=== PATIENT | female | born 1940 | race Caucasian/White ===

== ENCOUNTER 2023-10-13 21:59 | Inpatient (IN) | payer OTHER, SELFPAY ==
[2023-10-13] VITALS (7 sets, daily range): BP systolic 131–154; BP diastolic 67–104
--- NOTE | 2023-10-13 17:42 | ED.GENMED ---
History of Present Illness
General
Chief Complaint: Breathing Problem
Source: patient and family (Daughter)
Exam Limitations: none
Time Seen by Provider: 10/13/23 17:31
Nursing documentation reviewed up to this point in time: agreed with
Travel History
Have you had any contact with someone who has COVID-19?: No
Do you have any symptoms of coronavirus? Fever > 100 degrees, chills, cough, shortness of breath, sore throat, loss of taste or smell, muscle aches, or headache?: Yes
Symptoms:: sob
History of Present Illness
History of Present Illness:
83-year-old female with a past medical history of hypertension, diabetes, dementia, CVA with left-sided weakness who presents to the emergency room with her daughter for evaluation of breathing difficulty and lethargy. Patient is very limited as a
historian cannot really tell me very much due to her baseline dementia as well as her communicative deficits from stroke. Daughter is at bedside provides collateral history: She says that mother was in her normal state of health until Wednesday when
she noticed increased lethargy and patient was having some coughing and breathing difficulties. Symptoms are worsening today EMS called to bring patient to the emergency room to be assessed. No fevers or chills noted. No vomiting. No other
issues noted.
Past History
Past History
ED Past Medical History: CVA, GERD, HTN, NIDDM and Other (Memory loss)
ED Past Surgical History: Gynecological
Social History
Tobacco: Non-smoker
Personal:
Living: with family
Employment: Retired
Review of Systems
Review of Systems
Unable to obtain full review of systems at this time due to: dementia
All Other Systems: Not applicable
Phy Exam
Physical Exam
Physical Exam:
General: Awake, alert, chronically ill-appearing
Head: Normocephalic, atraumatic
Eyes: Conjunctiva normal, sclera anicteric
Throat: Airway intact, handling secretions
Neck: Trachea midline, supple without meningismus
Lungs: Rhonchorous breath sounds scattered bilaterally; pulse ox 88 to 90% on room air requiring 2 L nasal cannula; occasional coughing
Heart: Tachycardia with regular rhythm, no murmurs, gallops, or rubs
Abd: Soft, non distended, no apparent tenderness
Neuro: Left-sided weakness upper and lower extremities and slight left facial droop which is baseline per daughter
Extremities: Warm well-perfused with no significant edema
Scores
Heart Failure Risk
Heart Failure Risk Score: Not Applicable
Heart Score for Chest Pain Patients
STEMI patient?: Not applicable
Withdrawal Assessment of Alcohol
Withdrawal Assessment Completed?: Not applicable
Course
Orders/Labs/Results
Orders:
Orders
10/13/23 17:32
Electrocardiogram (*1) Urgent
Reason for Study: Shortness of Breath
EKG- Treatment ONCE
CR Chest Portable - 1 View Urgent
Comment:
Reason For Exam: sob
Reason Study Needs to be Portable: Unable to Transport
10/13/23 17:34
COVID-19 Antigen Urgent
Source: Nasal Swab
Complete Blood Count/With Diff Urgent
Comprehensive Metabolic Panel Urgent
Influenza A+B Rapid Molecular Urgent
GUCCI Source: Nasal Swab
Specimen Description:
10/13/23 18:04
Blood Culture Routine
GUCCI Source: Blood/Venous
Specimen Description:
Date Specimen was Collected: 10/13/23
Time Specimen was Collected: 17:55
10/13/23 18:47
CT Chest Pe Study Urgent
Comment:
Reason For Exam: hypoxia, dyspnea
10/13/23 19:40
Lactate Level [Lactic Acid] Urgent
10/13/23 19:45
Blood Culture Q30M
GUCCI Source: Blood/Venous
Specimen Description:
10/13/23 19:54
Azithromycin 500 mg IVPB NOW Azithromycin 500 mg/250 ml [Zithromax Infusion] 500 mg in 250 ml IV NOW
CefTRIAXone [Rocephin] 1,000 mg IV NOW STA
10/13/23 19:55
Procalcitonin Urgent
PCT Algorithmm Indication: Respiratory
Urinalysis Reflex To Culture Urgent
10/13/23 19:56
NSS 500mL Bolus over 1 hr 0.9% Sodium Chloride 500 ml [Nss] 500 ml IV BOLUS
10/13/23 20:15
Blood Culture Q30M
GUCCI Source: Blood/Venous
Specimen Description:
Abnormal Lab Results
10/13/23
17:34
WBC 17.7 H 10^3/uL
(4.8-10.8)
MCHC 32.5 L g/dL
(33.0-37.0)
Plt Count 440 H 10^3/uL
(130-400)
MPV 10.7 H fL
(7.4-10.4)
Abs Immat Gran (auto) 0.1 H 10^3/uL
(0-0.05)
Absolute Neuts (auto) 14.3 H 10^3/uL
(1.4-6.5)
Absolute Monos (auto) 0.7 H 10^3/uL
(0.1-0.6)
Neutrophils % 81.0 H %
(42.2-75.2)
Lymphocytes % 13.5 L %
(20.5-51.1)
BUN 21 H mg/dl
(7-17)
Glucose 197 H mg/dl
(70-99)
Calcium 12.0 H mg/dl
(8.4-10.2)
AST 38 H U/L
(14-36)
Alkaline Phosphatase 152 H U/L
(38-126)
10/13/23 17:34
10/13/23 17:34
Vital Signs
Initial and Last Documented VS:
Initial Vital Signs
Temp Pulse Resp BP Pulse Ox
36.9 C 103 21 138/69 90
10/13/23 17:06 10/13/23 17:06 10/13/23 17:06 10/13/23 17:06 10/13/23 17:06
Last Documented Vital Signs
Temp Pulse Resp BP Pulse Ox
36.9 C 103 21 138/69 92
10/13/23 17:06 10/13/23 17:06 10/13/23 17:06 10/13/23 17:06 10/13/23 17:15
MDM/Problems Addressed
Differential Diagnosis Includes:
Pneumonia, bronchitis, viral syndrome/influenza, PE considered somewhat less likely
MDM/Problems Addressed:
83-year-old female presents from home with cough, breathing difficulties and lethargy over the past few days. Tachycardic and mildly tachypneic, hypoxic on arrival. Physical exam as above. Plan to place an IV check labs including CBC and CMP will
send viral swabs. Will check an EKG and a chest x-ray. Will monitor closely reassess after the above. Anticipate admission.
Labs reviewed: CBC shows a leukocytosis to 17.7. CMP shows random glucose of 197 no signs of DKA. Viral swabs have been negative. Chest x-ray limited due to low lung volumes no clear pneumonia or edema. Given hypoxia and continued tachycardia,
tachypnea will send for CTA to rule out PE as well as to evaluate for any occult pneumonia. Added on lactate and blood cultures as well given her leukocytosis.
CTA shows no clear PE; she does have atelectasis versus scarring at the lung bases right greater than left; based on her history I would be concerned for potential occult pneumonia here as well. She does have increased oxygen requirement with no
other clear explanation and she has a significant leukocytosis, continued tachycardia and tachypnea. Will cover her with antibiotics. Will plan for admission for continued monitoring and treatment. Discussed with hospitalist for admission.
Chronic conditions affecting care:
Dementia
*Radiology
Radiology exam reviewed: preliminary read by ED provider and radiology read reviewed
*Pulse Oximetry
Patient hypoxic: yes
*Critical Care Note
Total Time (30-74mins, 75-104mins- exclusive of procedures): Not Applicable
Data Reviewed
Review of Other/Old Records Reveals: Labs and Records
Source: patient, records, family (Daughter) and ambulance crew
Patient Management
Discussion with other providers: Hospitalist (Discussed with hospitalist)
Escalation/DeEscalation of care consider admission/obs:
Admission indicated
ED Attending Note
-
Portions of this chart may have been created with voice recognition software.� Occasional wrong word or��sound alike� substitutions may have occurred due to the inherent limitations of voice recognition software.
Discharge Plan
Departure
Patient Disposition: Admit
Date of Disposition: 10/13/23
Time of Disposition: 19:59
Admit to doctor: Narda
Presentation/result/management discussed w/ accepting MD/DO: Hospitalist
Discharge Problem:
Pneumonia, Acute hypoxic respiratory failure
Prescriptions:
No Action
metformin 500 MG tablet
500 mg PO BID
amlodipine 10 MG tablet
10 mg PO HS
acetaminophen 325 MG tablet
650 mg PO QID PRN (Reason: pain) 0RF
Rx Instructions:
diltiazem HCl 120 MG capsule,extended release 24hr
120 mg PO DAILY 0RF
fluticasone propionate 1 SPRAY spray,suspension
1 spray intranasal DAILY Qty: 1 0RF
atorvastatin 40 MG tablet
40 mg PO QPM Qty: 30 0RF
clopidogrel 75 MG tablet
75 mg PO DAILY Qty: 30 0RF
benzocaine-menthol [Cepacol Sore Throat (fior-men)] 1 JOAN lozenge
1 joan PO Q4HPRN PRN (Reason: sore throat) 0RF
Referrals:
UNKNOWN - PT DOES,NOT KNOW [Unknown Provider] -
Interventions
Interventions:
*Risk Screen - Suicide Last Done: 10/13/23 17:06
*General Assessment Last Done: 10/13/23 17:06
*Neglect/Abuse Screening Last Done: 10/13/23 17:06
*ED COVID-19 Vaccine History Last Done: 10/13/23 17:06
ED- Cardiac Assessment Last Done: 10/13/23 17:38
ED- Pulmonary Assessment Last Done: 10/13/23 17:15
[2023-10-13 17:47] LABS: % Basophils 0.3 % (0-2); % Eosinophils 0.7 % (0-6); % Immature Granulocytes 0.4 % (0-0.5); % Lymphocytes 13.5 % (20.5-51.1); % Monocytes 4.1 % (1.7-9.3); Absolute Basophils 0.1 10^3/uL (0-0.2); Absolute Eosinophils 0.1 10^3/uL (0-0.7); Absolute Immature Granulocytes 0.1 10^3/uL (0-0.05); Absolute Lymphocytes 2.4 10^3/uL (1.2-3.4); Absolute Monocytes 0.7 10^3/uL (0.1-0.6); Absolute Neutrophils 14.3 10^3/uL (1.4-6.5); Hematocrit 42.2 % (37.0-47.0); Hemoglobin 13.7 g/dL (12.0-16.0); Mean Corp Hgb Conc. 32.5 g/dL (33.0-37.0); Mean Corpuscular Volume 86.1 fL (81.0-99.0); Mean Platelet Volume 10.7 fL (7.4-10.4); Nucleated Red Blood Cells % 0 %; Platelet Count 440 10^3/uL (130-400); Red Cell Dist. Width 13.8 % (11.5-14.5); White Blood Cell Count 17.7 10^3/uL (4.8-10.8)
[2023-10-13 17:59] LABS: ALT (SGPT) 21 U/L (0-35); AST (SGOT) 38 U/L (14-36); Albumin 4.3 g/dl (3.5-5.0); Alkaline Phosphatase 152 U/L (38-126); Blood Urea Nitrogen 21 mg/dl (7-17); COVID-19 Antigen Negative (Negative); Carbon Dioxide 22 mmol/L (22-30); Chloride 105 mmol/L (98-107); Glucose 197 mg/dl (70-99); Potassium 4.6 mmol/L (3.5-5.1); Sodium 141 mmol/L (135-145); Total Bilirubin 0.8 mg/dl (0.2-1.3); Total Protein 7.6 g/dl (6.3-8.2); eGFR > 60.00
[2023-10-13] MEDS: ROCEPHIN 1000 MG IV (20:16)
[2023-10-13] MEDS: ZITHROMAX INFUSION 250 IV (20:16)
[2023-10-13] MEDS: NSS 500 IV (20:16)
--- NOTE | 2023-10-13 20:17 | HPS.HSE ---
Family Physician
-
Family Physician: Fabio Temple
Chief Complaint
-
shortness of breath and fatigue
History of Present Illness
Ms. Carrie Hoyt is a 83 yo woman with hx HTN, DM, dementia, CVA with residual left-sided weakness who presents to the ER with fatigue and and cough. History obtained from daughter at bedside. Patient is lethargic on my exam. Per daughter,
patient was in her usual state of health on Wednesday. On Wednesday she appeared to be run down from a cold. On Wednesday she was more fatigued. She did not have a fever and continued to eat well. She had mild cough and daughter heard a 'gurgle' in her
chest. Hotel Assistant Manager mentioned possibility of pneumonia which resulted in daughter bringing her to ER. Daughter has been giving her Robitussin with dextromethorphan. Patient has been increasingly fatigued.
No complaints of chest pain. No nausea/vomiting. No diarrhea. No fevers.
At baseline she is non-ambulatory and fully dependent on care (cannot transfer). Daughter has caregivers during day and cares for her at night.
Medical History
Past Medical History
Past Medical History: Reports Other (HTN, DM, dementia, CVA with residual left-sided weakness)
Past Surgical History: Reports Gynocological
Social History
Tobacco: Non-smoker
Personal:
Family History
Family History: Not pertinent
Allergies / Home Medications
Allergies reflects when Allergies were last updated in [facility].
Home Medications with original date entered in [facility]
Allergy/Medication List:
Allergies
Allergy/AdvReac Type Severity Reaction Status Date / Time
latex Allergy Unknown Verified 05/19/23 19:19
Home Medications
amlodipine 10 mg tablet 10 mg PO DAILY 03/30/18
metformin 500 mg tablet 500 mg PO DAILY 03/30/18
clopidogrel 75 mg tablet 75 mg PO DAILY ##30 09/19/18
acetaminophen 325 mg tablet 650 mg PO TID 10/13/23
atorvastatin 40 mg tablet 40 mg PO DAILY 10/13/23
dextromethorphan-guaifenesin 10 mg-100 mg/5 mL oral liquid 10 ml PO Q4H PRN COUGH 10/13/23
diltiazem HCl 120 mg tablet 120 mg PO DAILY 10/13/23
metformin 500 mg tablet 500 mg PO QPMPRN PRN BLOOD SUGAR 10/13/23
Review of Systems
-
History Source: Patient
A 12 point ROS was completed and negative except as noted: Yes
Physical Exam
Vital Signs
Vital Signs
Temp Pulse Resp BP Pulse Ox
98.4 F 103 21 138/69 92
10/13/23 17:06 10/13/23 17:06 10/13/23 17:06 10/13/23 17:06 10/13/23 17:15
Physical Exam
General: Other (lethargic, grimaces to touch)
HEENT: PERRLA
Respiratory: Rales; No Wheezes
Cardiac: S1/S2 and Regular Rhythm
GI: Soft and Non Tender
Musculoskeletal: No Edema and Other (contractures )
Skin: Warm and Dry; No Rash
Neuro: Sedated
Psych: Calm
Laboratory Results
-
10/13/23 17:34
10/13/23 17:34
Laboratory Results
Total Bilirubin 0.8 mg/dl (0.2-1.3) 10/13/23 17:34
AST 38 U/L (14-36) H 10/13/23 17:34
ALT 21 U/L (0-35) 10/13/23 17:34
Alkaline Phosphatase 152 U/L (38-126) H 10/13/23 17:34
Data Reviewed
-
Diagnostic Radiology: Report Reviewed by me
Lab Data: Labs Reviewed by me
Impression/Plan
-
Ms. Carrie Hoyt is a 83 yo woman with hx HTN, DM, dementia, CVA with residual left-sided weakness who presents to the ER with fatiue and cough x 2-3 days found to have severe sepsis likely 2/2 pneumonia.
Triage VS: T 984, P 103, RR 21, BP 138/69, SpO2 90%
Labs: WBC 17.7, Hg 13.7, PLT 440, Na 141, K+ 4.6, BUN 21, Cr 0.6 ,Glucose 197, Ca 12, T. Bili 0.8, AST 38, ALT 21, Alk Phos 152
covid and flu negative
CXR
IMPRESSION:
Low lung volumes.
Cardiac silhouette and pulmonary vascularity at least top normal, cannot exclude mild CHF or acute pulmonary edema.
CHEST CT
IMPRESSION:
No evidence of central pulmonary embolism.
Likely coronary artery calcification
'some mild bilateral subsegmental atelectasis and/or scarring, right greater than left.'
MAR: Cef, Azithro, 500 cc bolus
Severe Sepsis secondary to pneumonia
TME 2/2 above
Hypoxic Respiratory Insufficiency 2/2 Above
-admit to med/surg
-flu and covid negative
-s/p Cef/Azithro in ER, will continue
-F/U cultures
-trend lactate and bolus PRN
-O2 support as needed
-gentle IVF
-NPO until ST eval given TME
Reactive airway disease
-patient uses albuterol at home; no hx smoking; will give standing duonebs x 24 hours then PRN, no wheezing on exam
Hypertension
-CLAM DIGGER amlodipine, patient runs high at home per daughter
Dementia
-patient requires 24/7 care, non-ambulatory
Hx CVA with residual left-sided weakness
-CLAM DIGGER Plavix when able to take PO
Hypercalcemia - mild/moderate
-hydration overnight and repeat tomorrow
DVT PPx lovenox subQ
DNR - discussed with daughter on admission
76 minutes spent on patient evaluation, medical decision making, coordination of care
[2023-10-13 20:42] LABS: Urine Albumin 2+ (Neg - Trace); Urine Bilirubin Negative (Negative); Urine Character Slightly Cloudy (Clear); Urine Color Yellow; Urine Glucose Negative (Negative); Urine Ketone 1+ (Negative); Urine Leukocyte Trace (Negative); Urine Nitrite Negative (Negative); Urine Occult Blood Negative (Negative); Urine Urobilinogen 1+ (Neg - 1+)
[2023-10-13 20:47] LABS: Urine Amorphous Seen; Urine Squamous Cell 0-2 /LPF (Few)
[2023-10-13 20:48] LABS: Urine Red Blood Cell None Seen /HPF (0-2)
[2023-10-13 20:50] LABS: Lactic Acid 2.1 mmol/L (0.7-2.0)
[2023-10-13 21:06] LABS: Procalcitonin 0.17 ng/ml (0.0-0.25)
[2023-10-14] VITALS (20 sets, daily range): BP systolic 114–160; BP diastolic 58–78; BMI 24.9
[2023-10-14] MEDS: NSS 1000 IV ×2 (00:40→14:39)
[2023-10-14 03:41] LABS: Lactic Acid 0.8 mmol/L (0.7-2.0)
[2023-10-14 05:21] LABS: % Basophils 0.4 % (0-2); % Eosinophils 1.2 % (0-6); % Immature Granulocytes 0.4 % (0-0.5); % Lymphocytes 11.5 % (20.5-51.1); % Monocytes 6.3 % (1.7-9.3); % Neutrophils 80.2 % (42.2-75.2); Absolute Basophils 0.1 10^3/uL (0-0.2); Absolute Eosinophils 0.2 10^3/uL (0-0.7); Absolute Immature Granulocytes 0.1 10^3/uL (0-0.05); Absolute Lymphocytes 1.6 10^3/uL (1.2-3.4); Absolute Monocytes 0.9 10^3/uL (0.1-0.6); Absolute Neutrophils 10.9 10^3/uL (1.4-6.5); Hematocrit 30.3 % (37.0-47.0); Hemoglobin 10.1 g/dL (12.0-16.0); Mean Corp Hgb Conc. 33.3 g/dL (33.0-37.0); Mean Corpuscular Hgb 28.4 pg (27.0-31.0); Mean Corpuscular Volume 85.1 fL (81.0-99.0); Mean Platelet Volume 10.3 fL (7.4-10.4); Nucleated Red Blood Cells % 0 %; Platelet Count 333 10^3/uL (130-400); Red Blood Cell Count 3.56 10^6/uL (4.20-5.40); Red Cell Dist. Width 13.9 % (11.5-14.5); White Blood Cell Count 13.6 10^3/uL (4.8-10.8)
[2023-10-14 05:50] LABS: Blood Urea Nitrogen 17 mg/dl (7-17); Calcium 10.8 mg/dl (8.4-10.2); Carbon Dioxide 25 mmol/L (22-30); Chloride 108 mmol/L (98-107); Estimated Creatinine Clearance 60 ml/min; Glucose 152 mg/dl (70-99); Magnesium 1.9 mg/dl (1.6-2.3); Potassium 3.8 mmol/L (3.5-5.1); Sodium 142 mmol/L (135-145); eGFR > 60.00
--- NOTE | 2023-10-14 07:32 | W.PN.HOSP.TC ---
Today's Communication/Plan
-
see A/P
Assessment / Plan
Assessment / Plan
83 yo woman with hx HTN, DM, dementia, CVA with residual left-sided weakness who presented with fatigue and and cough.� History obtained from daughter at bedside.� Patient is lethargic on exam.� Per daughter, patient was in her usual state of health
on Wednesday.�On Wednesday she appeared to be run down from a cold.�On Wednesday she was more fatigued.�She did not have a fever and continued to eat well.� She had mild cough and daughter heard a 'gurgle' in her chest.� Senior Geologist mentioned possibility of
pneumonia which resulted in daughter bringing her to ER.�Daughter has been giving her Robitussin with dextromethorphan.� Patient has been increasingly fatigued.�
No complaints of chest pain.� No nausea/vomiting.� No diarrhea.� No fevers.�
At baseline she is non-ambulatory and fully dependent on care (cannot transfer).�Daughter has caregivers during day and cares for her at night.�
CXR:
Low lung volumes.
Cardiac silhouette and pulmonary vascularity at least top normal, cannot exclude mild CHF or acute pulmonary edema.
CHEST CT
No evidence of central pulmonary embolism. Likely coronary artery calcification
'some mild bilateral subsegmental atelectasis and/or scarring, right greater than left.'
A/P:
# Sepsis POA secondary to pneumonia
# Acute metabolic encephalopathy 2/2 above
# Acute Hypoxic Respiratory Insufficiency 2/2 Above, resolved
# Resolved mild lactic acidosis
Weaned off O2 support back to RA
flu and covid negative
Procal 0.17
s/p Cef/Azithro in ER, will continue
F/U blood cultures, check MRSA screen
Gentle IVF
NPO until ST eval given TME
# Reactive airway disease
patient uses albuterol at home; no hx smoking
Cont standing duonebs x 24 hours then PRN, no wheezing on exam
# Hypertension
Cont CASING CREW PUSHER amlodipine with holding parameter
# Dementia
patient requires 24/7 care, non-ambulatory
She is awake, not conversant
# Hx CVA with residual left-sided weakness
Cont CASING CREW PUSHER Plavix when able to take PO
# Hypercalcemia - mild/moderate
improved following IVF
DVT PPx Lovenox subQ
DNR - discussed with daughter on admission
updated daughter on the phone
Anticipated Discharge: > 48 hours
Subjective/Interval History
-
Date of Service: October 14, 2023
Objective Data
-
Labs:
Laboratory Results
10/14/23
05:08
WBC 13.6 H
Hgb 10.1 L D
Hct 30.3 L
Plt Count 333 D
Sodium 142
Potassium 3.8
Chloride 108 H
Carbon Dioxide 25
BUN 17
Creatinine 0.5 L
Glucose 152 H
Calcium 10.8 H
Vital Signs:
Vital Signs
Temp Pulse Resp BP Pulse Ox
36.9 C 77 14 143/71 91
10/13/23 17:06 10/14/23 07:00 10/14/23 07:00 10/14/23 07:00 10/14/23 07:00
Review of Systems
-
Unable to obtain full review of systems at this time due to: Dementia and Acuity
Physical Exam
-
General: Well Developed, Well Nourished, No Apparent Distress and Comfortable; Negative Respiratory Distress
HEENT: Normocephalic, Atraumatic, Nose Appears Normal and Ears Appear Normal; Negative Oxygen
Respiratory: Clear to Auscultation and Non Labored Respirations; Negative Accessory Resp Muscle Use
Cardiac: Regular Rhythm and S1/S2
GI: Soft, Nontender, Nondistended and Normal Bowel Sounds
Skin: Warm and Dry
Neuro: Awake
Psych: Calm and Apparent Dementia
Data Reviewed
-
Diagnostic Radiology: Report Reviewed by me
CT Scan: Report Reviewed by me
Labs: Labs Reviewed by me
[2023-10-14] MEDS: DUONEB 3 ML INH ×3 (07:47→15:33)
[2023-10-14 08:54] LABS: Glycohemoglobin (HgbA1c) 6.8 % (4.0-5.6)
--- NOTE | 2023-10-14 10:03 | PTOTSP ---
Speech Therapy
Presentation: Patient is unable to answer orientation questions, slow formulation of short utterances that are intermittently intelligible and functional.
Swallowing Function: GEODETIC SURVEYOR TECHNOLOGIST observed patient with several tsp presentations of ice, thin liquids, nectar thick liquids and puree. Patient appeared to tolerate ice chips, nectar thick liquids and puree as patient did not exhibit any overt clinical s/sx
of aspiration. Patient did demonstrate a reflexive weak cough and throat clear with thin liquids. Patient's SpO2 and RR remained WNL but patient did appear to be short of breath. Nasal O2 noted.
Recommendations:
1) IDDSI Level 4; puree solids and mildly thick liquids
2) Standard aspiration precautions
3) Medications as tolerated
4) May consider VSE
5) Not a candidate for ARHP at this time due to confusion
Plan: GEODETIC SURVEYOR TECHNOLOGIST will continue to follow; pending hospitalization.
[2023-10-14] MEDS: NORVASC 10 MG PO (10:11)
[2023-10-14] MEDS: PLAVIX 75 MG PO (10:12)
[2023-10-14 10:15] LABS: Glucose - Point of Care 151 mg/dl (70-99)
[2023-10-14] MEDS: NOVOLOG FLEXPEN-LOW RESISTANCE SC ×2 (10:17→13:30)
[2023-10-14 13:23] LABS: Glucose - Point of Care 135 mg/dl (70-99)
--- NOTE | 2023-10-14 13:39 | EDRN ---
@1140 noted runs of VTACH on monitor, RN went into room, pt. sleeping. No obvious distress. Pt. awoken and not noted to be in any pain. EKG repeated, vitals repeated and stable. No new runs noted while doing EKG. Dr. Allen contacted on tiger text and
made aware of the situation. Stated she would be down to see the pt. Will continue to monitor pt. Rhythm strips printed and placed in chart.
--- NOTE | 2023-10-14 14:35 | CON.CAR ---
Addendum entered and electronically signed by Ann-Marie De Luna MD 10/14/23 16:32:
I saw and examined the patient.
The GENERATOR WORKER's note was reviewed and I agree with the note.
Comment: 83 y/o female with hypertension, DM, dementia, CVA with left-sided weakness who is here with fatigue and cough and is being treated for PNA. We are consulted for arrhythmia noted on the monitor- she was not symptomatic per nursing.�She
cannot provide any history due to OBS. Care give at bedside denies cardiac history. She had increased sob and coughing when eating. On exam she is awake but doesn't participate in a conversation. Regular rate and rhythm with normal S1-S2, she has
bibasilar rales, extremities are without edema. On review of her telemetry, sinus rhythm is noted with intermittent left bundle branch block. Additionally, there is episodes of artifact that could be reminiscent of a very fast tachyarrhythmia, but
complexes October through. There is no evidence of VT. Will continue treating for pneumonia as you are. She is DNR and has significant dementia. No need to continue telemetry.
We will sign off but return if needed.
Original Note:
Consultation
Consultation Request
Date/Time Consultation Requested: 10/14/23 1200
Date/Time Consultation Performed: 10/14/23 1350
Requesting Provider: Dr. Morales
Performing Provider: Alysha HARDY for Dr. De Luna
Reason for Consultation: arrhythmia
Medical History
-
Chief Complaint: fatigue, cough
History of Present Illness:
83 y/o female with hypertension, DM, dementia, CVA with left-sided weakness who is here with fatigue and cough and is being treated for PNA. We are consulted for arrhythmia noted on the monitor- she was not symptomatic per nursing. She is here being
treated for sepsis/PNA with ABX.
Past Medical History
Past Medical History: CVA, HTN, NIDDM and Other (dementia)
Social History
Tobacco: Non-Smoker
Family History
Family History: Reviewed & Not Pertinent
Allergies / Home Medications
Allergy/AdvReac Type Severity Reaction Status Date / Time
latex Allergy Unknown Verified 05/19/23 19:19
Medication Instructions Recorded Confirmed Type
amlodipine 10 mg tablet 10 mg PO DAILY 03/30/18 10/13/23 History
metformin 500 mg tablet 500 mg PO DAILY 03/30/18 10/13/23 History
clopidogrel 75 mg tablet 75 mg PO DAILY ##30 04/27/18 10/13/23 Rx
acetaminophen 325 mg tablet 650 mg PO TID 10/13/23 10/13/23 History
atorvastatin 40 mg tablet 40 mg PO DAILY 10/13/23 10/13/23 History
dextromethorphan-guaifenesin 10 10 ml PO Q4H PRN COUGH 10/13/23 10/13/23 History
mg-100 mg/5 mL oral liquid
diltiazem HCl 120 mg tablet 120 mg PO HS 10/13/23 10/13/23 History
metformin 500 mg tablet 500 mg PO QPMPRN PRN BLOOD SUGAR 10/13/23 10/13/23 History
Review of Systems
-
Unable to obtain full review of systems at this time due to: Dementia
History Source: Other (blind stitch machine operator and chart)
All other systems: Negative unless noted
Constitutional: Fatigue
Respiratory: Cough
Physical Exam
Vital Signs
Temp Pulse Resp BP Pulse Ox
98.8 F 76 14 114/58 99
10/14/23 07:30 10/14/23 13:00 10/14/23 13:00 10/14/23 13:00 10/14/23 11:47
Lab Results
10/14/23 05:08
10/14/23 05:08
Physical Exam
General: Well Developed, Well Nourished and No Apparent Distress
HEENT: Normocephalic and Anicteric
Respiratory: Other (coarse lung sounds)
Cardiac: Regular Rhythm
Skin: Warm and Dry
Neuro: Awake, Alert and Other (following simple commands, but not answering questions- improved from yesterday per blind stitch machine operator )
Psych: Calm
Impression / Plan
-
Sepsis/PNA:
-WBC elevated. On ABX-. s/p IVF. Speech eval.
-management per primary team
Arrhythmia:
-tele strips reviewed with Dr. De Luna- consistent with artifact- no further cardiac evaluation indicated
HTN:
-stable on medical therapy
Hx CVA:
-on Plavix/statin
Data Reviewed
-
EKG: Tracing Personally Visualized and interpreted (SR with LBBB)
CT Scan: Report Reviewed by me (CT SCAN: No evidence of central pulmonary embolism.)
Medical Tests (Nuc Med, Echo etc): Report Reviewed by me (echo 03/31/18: Normal left ventricular systolic function. Left ventricular ejection fraction is 55-60%. Aortic sclerosis/mild aortic stenosis with peak/mean gradients of 16/9 mmHg.)
Labs: Labs Reviewed by me
[2023-10-14] MEDS: ROCEPHIN 1000 MG IV (16:56)
[2023-10-14] MEDS: STERILE WATER FOR INJECTION 10 ML IV (16:57)
[2023-10-14 17:21] LABS: Glucose - Point of Care 232 mg/dl (70-99)
[2023-10-14] MEDS: LOVENOX 40 MG SC (18:02)
[2023-10-14] MEDS: NOVOLOG FLEXPEN-LOW RESISTANCE 2 UNITS SC (18:06)
[2023-10-14] MEDS: DUONEB INH (20:08)
--- NOTE | 2023-10-14 20:30 | PTCARENOTE ---
Received patient from ED via stretcher. Patient pulled over from stretcher to bed. Daughter at bedside. Patient oriented to self only, verbalizes minimally. Oriented to room and call tidwell placed within reach.
[2023-10-14] MEDS: ZITHROMAX INFUSION 250 IV (22:37)
[2023-10-14] MEDS: CARDIZEM 120 MG PO (22:49)
[2023-10-14] MEDS: TYLENOL 650 MG PO (22:49)
[2023-10-15 01:39] LABS: Glucose - Point of Care 193 mg/dl (70-99)
[2023-10-15 03:19] VITALS: BP 148/66
[2023-10-15] MEDS: NSS 1000 IV (05:57)
[2023-10-15 07:53] LABS: Hematocrit 30.5 % (37.0-47.0); Hemoglobin 9.6 g/dL (12.0-16.0); Mean Corp Hgb Conc. 31.5 g/dL (33.0-37.0); Mean Corpuscular Hgb 27.9 pg (27.0-31.0); Mean Corpuscular Volume 88.7 fL (81.0-99.0); Mean Platelet Volume 10.8 fL (7.4-10.4); Platelet Count 317 10^3/uL (130-400); Red Blood Cell Count 3.44 10^6/uL (4.20-5.40); Red Cell Dist. Width 13.9 % (11.5-14.5); White Blood Cell Count 9.3 10^3/uL (4.8-10.8)
[2023-10-15 08:25] VITALS: BP 151/71
[2023-10-15 08:26] LABS: ALT (SGPT) 17 U/L (0-35); AST (SGOT) 26 U/L (14-36); Albumin 2.9 g/dl (3.5-5.0); Alkaline Phosphatase 113 U/L (38-126); Blood Urea Nitrogen 18 mg/dl (7-17); Calcium 10.2 mg/dl (8.4-10.2); Carbon Dioxide 22 mmol/L (22-30); Chloride 116 mmol/L (98-107); Direct Bilirubin 0.1 mg/dl (0.0-0.4); Estimated Creatinine Clearance 48 ml/min; Glucose 157 mg/dl (70-99); Potassium 3.7 mmol/L (3.5-5.1); Sodium 141 mmol/L (135-145); Total Bilirubin 0.4 mg/dl (0.2-1.3); Total Protein 5.6 g/dl (6.3-8.2); eGFR > 60.00
[2023-10-15 08:42] LABS: Glucose - Point of Care 154 mg/dl (70-99)
[2023-10-15] MEDS: NOVOLOG FLEXPEN-LOW RESISTANCE 1 UNITS SC ×2 (08:43→13:15)
[2023-10-15] MEDS: DESENEX/MITRAZOL/ZEASORB 1 APPLIC TOPICAL ×2 (08:44→21:14)
[2023-10-15] MEDS: NORVASC 10 MG PO (08:46)
[2023-10-15] MEDS: PLAVIX 75 MG PO (08:47)
--- NOTE | 2023-10-15 10:05 | W.PN.HOSP.TC ---
Today's Communication/Plan
-
see A/P
Assessment / Plan
Assessment / Plan
83 yo woman with hx HTN, DM, dementia, CVA with residual left-sided weakness who presented with fatigue and and cough.� History obtained from daughter at bedside.� Patient is lethargic on exam.� Per daughter, patient was in her usual state of health
on Wednesday.�On Wednesday she appeared to be run down from a cold.�On Wednesday she was more fatigued.�She did not have a fever and continued to eat well.� She had mild cough and daughter heard a 'gurgle' in her chest.� Trip Follower mentioned possibility of
pneumonia which resulted in daughter bringing her to ER.�Daughter has been giving her Robitussin with dextromethorphan.� Patient has been increasingly fatigued.�
No complaints of chest pain.� No nausea/vomiting.� No diarrhea.� No fevers.�
At baseline she is non-ambulatory and fully dependent on care (cannot transfer).�Daughter has caregivers during day and cares for her at night.�
CXR:
Low lung volumes.
Cardiac silhouette and pulmonary vascularity at least top normal, cannot exclude mild CHF or acute pulmonary edema.
CHEST CT
No evidence of central pulmonary embolism. Likely coronary artery calcification
'some mild bilateral subsegmental atelectasis and/or scarring, right greater than left.'
A/P:
# Sepsis POA secondary to CAP vs aspiration pneumonia
# Acute metabolic encephalopathy 2/2 above
# Acute Hypoxic Respiratory Insufficiency 2/2 Above, resolved
# Resolved mild lactic acidosis
Weaned off O2 support back to RA , cont to monitor pulse OX on RA (daughter states pt drops to 88% on RA at home)
flu and covid negative, Procal 0.17
Cont Ceftriaxone/Azithromycin, added Flagyl
Follow MRSA screen
blood cultures negative
s/p Gentle IVF
Cleared for pureed diet with mildly thickened liquid per SPL eval
# Reactive airway disease
patient uses albuterol at home; no hx smoking
Cont standing duonebs x 24 hours then PRN, no wheezing on exam
# Hypertension
Cont MOBILE ARCHITECT amlodipine with holding parameter
# Dementia
patient requires 24/ care, non-ambulatory
She is awake, minimally conversant
# Hx CVA with residual left-sided weakness
resume MOBILE ARCHITECT Plavix
# Hypercalcemia, resolved after IVF
DVT PPx Lovenox subQ
DNR - discussed with daughter on admission
DW daughter at bedside
total time spent 51 min
Anticipated Discharge: > 48 hours
Subjective/Interval History
-
Date of Service: October 15, 2023
Objective Data
-
Labs:
Laboratory Results
10/15/23
07:25
WBC 9.3
Hgb 9.6 L
Hct 30.5 L
Plt Count 317
Sodium 141
Potassium 3.7
Chloride 116 H
Carbon Dioxide 22
BUN 18 H
Creatinine 0.6
Glucose 157 H
Calcium 10.2
Total Bilirubin 0.4
AST 26
ALT 17
Alkaline Phosphatase 113
Vital Signs:
Vital Signs
Temp Pulse Resp BP Pulse Ox
36.7 C 69 16 151/71 96
10/15/23 08:25 10/15/23 08:25 10/15/23 08:25 10/15/23 08:25 10/15/23 08:25
I&O
10/14/23 10/15/23 10/16/23
06:59 06:59 06:59
Intake Total 140 / 140
Balance 140 / 140
Review of Systems
-
Unable to obtain full review of systems at this time due to: Dementia and Acuity
Physical Exam
-
General: Well Developed, Well Nourished, No Apparent Distress, Comfortable and Appears Chronically Ill
HEENT: Normocephalic, Atraumatic, Nose Appears Normal and Ears Appear Normal
Respiratory: Clear to Auscultation and Non Labored Respirations; Negative Accessory Resp Muscle Use
Cardiac: Regular Rhythm and S1/S2
GI: Soft, Nontender, Nondistended and Normal Bowel Sounds
Skin: Warm and Dry
Neuro: Awake
Psych: Calm and Apparent Dementia
Data Reviewed
-
Diagnostic Radiology: Report Reviewed by me
CT Scan: Report Reviewed by me
Labs: Labs Reviewed by me
--- NOTE | 2023-10-15 11:33 | CM ---
Patient seen bedside with daughter, Jaqueline Oswald [phone], initial assessment completed by daughter. Per daughter, patient resides with her in a split level home, patient has a one story set up. Daughter reports patient has 24/7 care, private
caregivers during the day, daughter provides care over night. Daughter requesting VN referral upon discharge for additional, referral made to [facility]. Daughter reports patient is non-ambulatory and fully dependent with her care. Daughter confirms
patients PCP Fabio Temple, [facility]. CM will continue to follow for discharge planning needs.
Plan; return home with 24/7 care along with [facility] pending acceptance.
[2023-10-15] MEDS: FLAGYL 500 MG 100 IV ×2 (11:52→21:13)
[2023-10-15 12:08] VITALS: BP 167/83
[2023-10-15 12:26] LABS: Glucose - Point of Care 168 mg/dl (70-99)
--- NOTE | 2023-10-15 13:53 | PTCARENOTE ---
Air mattress placed on patient's bed and bilateral heel protectors placed due to high risk of skin breakdown.
--- NOTE | 2023-10-15 14:10 | PTOTSP ---
Speech Language Pathology
Pt seen for dysphagia tx. Upon arrival, student RN feeding pt lunch of pureed solids and mildly thick liquids. She reported intermittent slight wet cough. Slightly wet vocal quality noted with FREELANCE DISPLAYER. Trialed puree, mildly thick liquids, and thin
liquids. Intermittent wet breath sounds and cough noted with all liquids. Question whether related to baseline secretions or aspiration.
Recommend:
(1) VSE
(2) Continue IDDSI Level 4 (Puree) with Mildly Thick Liquids ([place]-thick) pending VSE
(3) Aspiration precautions: single sips, slow rate, sit upright
(4) Meds crushed in puree
--- NOTE | 2023-10-15 14:51 | PTOTSP ---
Speech Language Pathology
VIDEOFLUOROSCOPIC SWALLOWING EXAMINATION (VSE) completed. Overall, pt with mod-severe oropharyngeal dysphagia with aspiration (silent at times) of thin liquids and at least penetration to the level of the vocal folds (with suspected eventual
aspiration) with thickened liquids.
Recommend:
(1) NPO
(2) GOC discussion
(3) Oral care 4x/day with suctioning as needed
(4) Allow meds crushed in puree
(5) Hold on Aspiration Risk Hydration Protocol (ARHP) given severity of aspiration of thin liquids
(6) COPY CENTER OPERATOR to continue to follow
[2023-10-15] MEDS: STERILE WATER FOR INJECTION 10 ML IV (16:45)
[2023-10-15] MEDS: ROCEPHIN 1000 MG IV (16:45)
[2023-10-15 17:04] LABS: Glucose - Point of Care 216 mg/dl (70-99)
[2023-10-15] MEDS: LOVENOX 40 MG SC (17:18)
[2023-10-15] MEDS: NOVOLOG FLEXPEN-LOW RESISTANCE 2 UNITS SC (17:18)
[2023-10-15] MEDS: NOVOLOG FLEXPEN-LOW RESISTANCE SC (17:39)
[2023-10-15 19:46] VITALS: BP 136/70
[2023-10-15] MEDS: CARDIZEM 120 MG PO (21:24)
[2023-10-15 21:47] LABS: Glucose - Point of Care 123 mg/dl (70-99)
[2023-10-15] MEDS: ZITHROMAX INFUSION 250 IV (22:28)
[2023-10-15 23:54] VITALS: BP 130/54
[2023-10-16 00:22] LABS: Glucose - Point of Care 139 mg/dl (70-99)
[2023-10-16] MEDS: NOVOLOG FLEXPEN-LOW RESISTANCE SC ×4 (00:48→17:38)
[2023-10-16 03:27] VITALS: BP 148/62
[2023-10-16] MEDS: FLAGYL 500 MG 100 IV ×3 (04:15→21:11)
[2023-10-16 06:33] LABS: Glucose - Point of Care 140 mg/dl (70-99)
[2023-10-16 07:32] LABS: Hematocrit 32.6 % (37.0-47.0); Hemoglobin 10.5 g/dL (12.0-16.0); Mean Corp Hgb Conc. 32.2 g/dL (33.0-37.0); Mean Corpuscular Hgb 28.5 pg (27.0-31.0); Mean Corpuscular Volume 88.6 fL (81.0-99.0); Mean Platelet Volume 10.7 fL (7.4-10.4); Platelet Count 336 10^3/uL (130-400); Red Blood Cell Count 3.68 10^6/uL (4.20-5.40); Red Cell Dist. Width 13.8 % (11.5-14.5); White Blood Cell Count 7.6 10^3/uL (4.8-10.8)
[2023-10-16 07:38] VITALS: BP 155/68
[2023-10-16 08:00] LABS: Blood Urea Nitrogen 14 mg/dl (7-17); Calcium 10.3 mg/dl (8.4-10.2); Carbon Dioxide 26 mmol/L (22-30); Chloride 114 mmol/L (98-107); Estimated Creatinine Clearance 48 ml/min; Glucose 146 mg/dl (70-99); Potassium 3.7 mmol/L (3.5-5.1); Sodium 142 mmol/L (135-145); eGFR > 60.00
[2023-10-16] MEDS: PLAVIX 75 MG PO (08:18)
[2023-10-16] MEDS: DESENEX/MITRAZOL/ZEASORB 1 APPLIC TOPICAL ×2 (08:18→21:11)
[2023-10-16] MEDS: NORVASC 10 MG PO (08:18)
[2023-10-16 12:17] LABS: Glucose - Point of Care 123 mg/dl (70-99)
--- NOTE | 2023-10-16 14:15 | W.PN.HOSP.TC ---
Today's Communication/Plan
-
see A/P
Assessment / Plan
Assessment / Plan
83 yo woman with hx HTN, DM, dementia, CVA with residual left-sided weakness who presented with fatigue and and cough.� History obtained from daughter at bedside.� Patient is lethargic on exam.� Per daughter, patient was in her usual state of health
on Wednesday.�On Wednesday she appeared to be run down from a cold.�On Wednesday she was more fatigued.�She did not have a fever and continued to eat well.� She had mild cough and daughter heard a 'gurgle' in her chest.� Research Assistant mentioned possibility of
pneumonia which resulted in daughter bringing her to ER.�Daughter has been giving her Robitussin with dextromethorphan.� Patient has been increasingly fatigued.�
No complaints of chest pain.� No nausea/vomiting.� No diarrhea.� No fevers.�
At baseline she is non-ambulatory and fully dependent on care (cannot transfer).�Daughter has caregivers during day and cares for her at night.�
CXR:
Low lung volumes.
Cardiac silhouette and pulmonary vascularity at least top normal, cannot exclude mild CHF or acute pulmonary edema.
CHEST CT
No evidence of central pulmonary embolism. Likely coronary artery calcification
'some mild bilateral subsegmental atelectasis and/or scarring, right greater than left.'
A/P:
# Sepsis POA secondary to CAP vs aspiration pneumonia
# Acute metabolic encephalopathy 2/2 above
# Acute Hypoxic Respiratory Insufficiency 2/2 Above, resolved
# Resolved mild lactic acidosis
Weaned off O2 support back to RA , cont to monitor pulse OX on RA (daughter states pt drops to 88% on RA at home)
flu and covid negative, Procal 0.17
Cont Ceftriaxone/Azithromycin/Flagyl
Unfortunately pt failed VSE, was recc NPO per SPL and GOC discussion
d/w family (daughter, WINSTON and ski technician) extensively at bedside, initiated GOC discussion
keep NPO and restart gentle IVF
# Reactive airway disease
patient uses albuterol at home; no hx smoking
Cont standing duonebs x 24 hours then PRN, no wheezing on exam
# Hypertension
Cont STUFFER amlodipine with holding parameter
# Dementia
patient requires 24/7 care, non-ambulatory
She is awake, minimally conversant
# Hx CVA with residual left-sided weakness
resume STUFFER Plavix
# Hypercalcemia, resolved after IVF
DVT PPx Lovenox subQ
DNR - discussed with daughter on admission
DW daughter, WINSTON and ski technician at bedside. Informed about failed VSE and the approaches for this (PEG vs hospice). Initiated GOC discussion. Family to discuss further
total time spent 50 min
Anticipated Discharge: 24 - 48 hours
Subjective/Interval History
-
Date of Service: October 16, 2023
Objective Data
-
Labs:
Laboratory Results
10/16/23
06:57
WBC 7.6
Hgb 10.5 L
Hct 32.6 L
Plt Count 336
Sodium 142
Potassium 3.7
Chloride 114 H
Carbon Dioxide 26
BUN 14
Creatinine 0.5 L
Glucose 146 H
Calcium 10.3 H
Vital Signs:
Vital Signs
Temp Pulse Resp BP Pulse Ox
37.0 C 69 20 155/68 92
10/16/23 10:59 10/16/23 10:59 10/16/23 10:59 10/16/23 07:38 10/16/23 10:59
I&O
10/15/23 10/16/23 10/17/23
06:59 06:59 07:59
Intake Total 140 / 140 470 / 470
Output Total 750 / 750
Balance 140 / 140 -280 / -280
Review of Systems
-
Unable to obtain full review of systems at this time due to: Dementia and Acuity
Physical Exam
-
General: Well Developed, Well Nourished, No Apparent Distress, Comfortable and Appears Chronically Ill
HEENT: Normocephalic, Atraumatic, Nose Appears Normal and Ears Appear Normal
Respiratory: Clear to Auscultation and Non Labored Respirations; Negative Accessory Resp Muscle Use
Cardiac: Regular Rhythm and S1/S2
GI: Soft, Nontender, Nondistended and Normal Bowel Sounds
Skin: Warm and Dry
Neuro: Awake
Psych: Calm and Apparent Dementia
Data Reviewed
-
Diagnostic Radiology: Report Reviewed by me
CT Scan: Report Reviewed by me
Labs: Labs Reviewed by me
[2023-10-16] MEDS: NSS 1000 IV (14:56)
[2023-10-16 15:17] VITALS: BP 152/75
[2023-10-16] MEDS: STERILE WATER FOR INJECTION 10 ML IV (15:42)
[2023-10-16] MEDS: ROCEPHIN 1000 MG IV (15:42)
[2023-10-16] MEDS: LOVENOX 40 MG SC (17:34)
[2023-10-16 17:39] LABS: Glucose - Point of Care 126 mg/dl (70-99)
[2023-10-16 19:34] VITALS: BP 153/68
[2023-10-16] MEDS: ZITHROMAX INFUSION 250 IV (19:46)
[2023-10-16] MEDS: CARDIZEM 120 MG PO (22:36)
[2023-10-16 23:20] VITALS: BP 136/63
[2023-10-17 00:22] LABS: Glucose - Point of Care 117 mg/dl (70-99)
[2023-10-17] MEDS: NOVOLOG FLEXPEN-LOW RESISTANCE SC ×5 (01:26→23:37)
[2023-10-17 03:44] VITALS: BP 147/63
[2023-10-17] MEDS: FLAGYL 500 MG 100 IV ×3 (05:17→20:17)
[2023-10-17 05:39] LABS: Glucose - Point of Care 121 mg/dl (70-99)
[2023-10-17] MEDS: NSS 1000 IV ×2 (06:06→20:17)
[2023-10-17 07:05] LABS: Hematocrit 33.3 % (37.0-47.0); Hemoglobin 10.5 g/dL (12.0-16.0); Mean Corp Hgb Conc. 31.5 g/dL (33.0-37.0); Mean Corpuscular Hgb 27.9 pg (27.0-31.0); Mean Corpuscular Volume 88.3 fL (81.0-99.0); Mean Platelet Volume 10.3 fL (7.4-10.4); Platelet Count 345 10^3/uL (130-400); Red Blood Cell Count 3.77 10^6/uL (4.20-5.40); Red Cell Dist. Width 13.6 % (11.5-14.5); White Blood Cell Count 7.6 10^3/uL (4.8-10.8)
[2023-10-17 07:28] LABS: Blood Urea Nitrogen 11 mg/dl (7-17); Calcium 10.3 mg/dl (8.4-10.2); Carbon Dioxide 24 mmol/L (22-30); Chloride 109 mmol/L (98-107); Estimated Creatinine Clearance 48 ml/min; Glucose 134 mg/dl (70-99); Potassium 3.3 mmol/L (3.5-5.1); Sodium 143 mmol/L (135-145); eGFR > 60.00
[2023-10-17 07:31] VITALS: BP 156/64
[2023-10-17] MEDS: NORVASC 10 MG PO (07:53)
[2023-10-17] MEDS: PLAVIX 75 MG PO (07:53)
[2023-10-17] MEDS: DESENEX/MITRAZOL/ZEASORB 1 APPLIC TOPICAL ×2 (07:53→20:27)
--- NOTE | 2023-10-17 11:27 | W.PN.HOSP.TC ---
Today's Communication/Plan
-
see A/P
Assessment / Plan
Assessment / Plan
83 yo woman with hx HTN, DM, dementia, CVA with residual left-sided weakness who presented with fatigue and and cough.� History obtained from daughter at bedside.� Patient is lethargic on exam.� Per daughter, patient was in her usual state of health
on Wednesday.�On Wednesday she appeared to be run down from a cold.�On Wednesday she was more fatigued.�She did not have a fever and continued to eat well.� She had mild cough and daughter heard a 'gurgle' in her chest.� Professor Of Physics mentioned possibility of
pneumonia which resulted in daughter bringing her to ER.�Daughter has been giving her Robitussin with dextromethorphan.� Patient has been increasingly fatigued.�
No complaints of chest pain.� No nausea/vomiting.� No diarrhea.� No fevers.�
At baseline she is non-ambulatory and fully dependent on care (cannot transfer).�Daughter has caregivers during day and cares for her at night.�
CXR:
Low lung volumes.
Cardiac silhouette and pulmonary vascularity at least top normal, cannot exclude mild CHF or acute pulmonary edema.
CHEST CT
No evidence of central pulmonary embolism. Likely coronary artery calcification
'some mild bilateral subsegmental atelectasis and/or scarring, right greater than left.'
A/P:
# Sepsis POA secondary to CAP vs aspiration pneumonia
# Acute metabolic encephalopathy 2/2 above
# Acute Hypoxic Respiratory Insufficiency 2/2 Above, resolved
# Resolved mild lactic acidosis
Weaned off O2 support back to RA , cont to monitor pulse OX on RA (daughter states pt drops to 88% on RA at home)
flu and covid negative, Procal 0.17
Cont Ceftriaxone/Azithromycin/Flagyl
Unfortunately pt failed VSE, was recc NPO per SPL and GOC discussion
d/w daughter at great length, provided the options of palliative/hospice vs PEG
Daughter is leaning toward PEG placement
Will consult GI for PEG eval and also second opinion for PEG placement
For now, keep NPO and cont gentle IVF
# Reactive airway disease
patient uses albuterol at home; no hx smoking
Cont standing duonebs x 24 hours then PRN, no wheezing on exam
# Hypertension
Cont RUBBER CUTTER amlodipine with holding parameter
# Dementia
patient requires 24/7 care, non-ambulatory
She is awake, minimally conversant, not orientated
# Hx CVA with residual left-sided weakness
resume RUBBER CUTTER Plavix
# Hypercalcemia, resolved after IVF
# Hypokalemia
replete IV
Follow Mag level
DVT PPx Lovenox subQ
DNR - discussed with daughter on admission
DW daughter at great length. She is leaning toward PEG placement to prolong her mother's life. She is not ready to accept aspiration risk with PO with potential . She has been informed that despite PEG, there IS STILL risk of aspiration.
Unfortunate situation.
total time spent 50 min
Anticipated Discharge: > 48 hours
Subjective/Interval History
-
Date of Service: October 17, 2023
Objective Data
-
Labs:
Laboratory Results
10/17/23
06:45
WBC 7.6
Hgb 10.5 L
Hct 33.3 L
Plt Count 345
Sodium 143
Potassium 3.3 L
Chloride 109 H
Carbon Dioxide 24
BUN 11
Creatinine 0.5 L
Glucose 134 H
Calcium 10.3 H
Vital Signs:
Vital Signs
Temp Pulse Resp BP Pulse Ox
36.8 C 63 15 156/64 98
10/17/23 07:31 10/17/23 07:53 10/17/23 07:31 10/17/23 07:31 10/17/23 07:31
I&O
10/16/23 10/17/23 10/18/23
05:59 06:59 06:59
Intake Total
Output Total
Balance
Review of Systems
-
Unable to obtain full review of systems at this time due to: Dementia
Physical Exam
-
General: Well Developed, Well Nourished, No Apparent Distress, Comfortable and Appears Chronically Ill
HEENT: Normocephalic, Atraumatic, Nose Appears Normal and Ears Appear Normal
Respiratory: Clear to Auscultation and Non Labored Respirations; Negative Accessory Resp Muscle Use
Cardiac: Regular Rhythm and S1/S2
GI: Soft, Nontender, Nondistended and Normal Bowel Sounds
Skin: Warm and Dry
Neuro: Awake
Psych: Calm and Apparent Dementia
Data Reviewed
-
Diagnostic Radiology: Report Reviewed by me
CT Scan: Report Reviewed by me
Labs: Labs Reviewed by me
[2023-10-17 11:55] LABS: Glucose - Point of Care 120 mg/dl (70-99)
[2023-10-17 11:58] VITALS: BP 150/71
[2023-10-17] MEDS: KCL 270 MEQ IV (12:33)
--- NOTE | 2023-10-17 14:43 | CON.GI ---
Consultation
-
Date/Time Consultation Requested: 10/17/2023
Date/Time Consultation Performed: 10/17/2023
Performing Provider: Moises Ovalles
Reason for Consultation: PEG
Medical History
Chief Complaint / HPI
Chief Complaint: PEG
History of Present Illness:
Patient is a 83-year-old female with history of HTN, DM, dementia, and CVA with residual left-sided weakness who p/w fatigue and cough. She had acute hypoxic respiratory sufficiency which subsequently resolved. She had CT chest which ruled out PE
and did not show any consolidation or findings of pneumonia. She had speech evaluation which showed silent aspiration on thin liquids. Given this finding consult for PEG placement was placed.
Past Medical History
Past Medical History: HTN, NIDDM and Other
Past Surgical History: Other
Social History
Tobacco: Non-Smoker
Alcohol: None
Family History
Family History: Reviewed & Not Pertinent
Allergies / Home Medications
Allergy/AdvReac Type Severity Reaction Status Date / Time
latex Allergy Unknown Verified 05/19/23 19:19
Medication Instructions Recorded
amlodipine 10 mg tablet 10 mg PO DAILY 03/30/18
metformin 500 mg tablet 500 mg PO DAILY 03/30/18
clopidogrel 75 mg tablet 75 mg PO DAILY ##30 04/27/18
acetaminophen 325 mg tablet 650 mg PO TID 10/13/23
atorvastatin 40 mg tablet 40 mg PO DAILY 10/13/23
dextromethorphan-guaifenesin 10 10 ml PO Q4H PRN COUGH 10/13/23
mg-100 mg/5 mL oral liquid
diltiazem HCl 120 mg tablet 120 mg PO HS 10/13/23
metformin 500 mg tablet 500 mg PO QPMPRN PRN BLOOD SUGAR 10/13/23
Review of Systems
Vital Signs
Temp Pulse Resp BP Pulse Ox
97.7 F 69 13 150/71 93
10/17/23 11:58 10/17/23 11:58 10/17/23 11:58 10/17/23 11:58 10/17/23 11:58
Physical Exam
Exam
General: Well Developed and Well Nourished
HEENT: Normocephalic
Respiratory: Clear
Cardiac: S1/S2
GI: Soft, Non Tender and Non Distended
Results
WBC 7.6 10^3/uL (4.8-10.8) 10/17/23 06:45
Hgb 10.5 g/dL (12.0-16.0) L 10/17/23 06:45
Hct 33.3 % (37.0-47.0) L 10/17/23 06:45
MCV 88.3 fL (81.0-99.0) 10/17/23 06:45
Plt Count 345 10^3/uL (130-400) 10/17/23 06:45
Absolute Neuts (auto) 10.9 10^3/uL (1.4-6.5) H 10/14/23 05:08
Sodium 143 mmol/L (135-145) 10/17/23 06:45
Potassium 3.3 mmol/L (3.5-5.1) L 10/17/23 06:45
Chloride 109 mmol/L (98-107) H 10/17/23 06:45
Carbon Dioxide 24 mmol/L (22-30) 10/17/23 06:45
BUN 11 mg/dl (7-17) 10/17/23 06:45
Creatinine 0.5 mg/dL (0.6-1.0) L 10/17/23 06:45
Calcium 10.3 mg/dl (8.4-10.2) H 10/17/23 06:45
Total Bilirubin 0.4 mg/dl (0.2-1.3) 10/15/23 07:25
AST 26 U/L (14-36) 10/15/23 07:25
ALT 17 U/L (0-35) 10/15/23 07:25
Alkaline Phosphatase 113 U/L (38-126) 10/15/23 07:25
Diagnostic Image Results:
Prior GI Procedures:
EGD:
Colonoscopy:
Assessment / Plan
-
Patient is a 83-year-old female with history of HTN, DM, dementia, and CVA with residual left-sided weakness who p/w fatigue and cough. She had acute hypoxic respiratory sufficiency which subsequently resolved. She had CT chest which ruled out PE
and did not show any consolidation or findings of pneumonia. She had speech evaluation which showed silent aspiration on thin liquids. Given this finding consult for PEG placement was placed.
Impression / Rec:
1. Failed swallow - Patient was admitted with fatigue and cough and found to have hypoxic respiratory insufficiency concern for possible aspiration pneumonia. CT chest ruled out PE and did not show any consolidation/pneumonia. She had swallow
evaluation which showed silent aspiration with thin liquids but no aspiration with barium pudding. Given this finding PEG placement was requested. Pt is on Plavix 75 mg. Spoke with pt's daughter (POA) re: PEG. Daughter understands PEG does not
prolong life or change outcome. The risks/complications of the procedure were also discussed. I believe first step is to discuss with speech/swallow whether PEG is necessary (can pt have thickened fluids?). Will need 5 day Plavix washout even if
PEG is to be pursued. Hold Plavix.
Total Time Spent with Patient (in minutes): 55
-
-
Thank you for consultation and allowing me to participate in the patient's care. Please call the care consultant GI physician during the after hours with any questions or concerns.
[2023-10-17] MEDS: STERILE WATER FOR INJECTION 10 ML IV (15:06)
[2023-10-17] MEDS: ROCEPHIN 1000 MG IV (15:08)
[2023-10-17 16:35] VITALS: BP 153/69
[2023-10-17] MEDS: LOVENOX 40 MG SC (17:10)
[2023-10-17 17:26] LABS: Glucose - Point of Care 131 mg/dl (70-99)
[2023-10-17 20:37] VITALS: BP 165/77
[2023-10-17 21:10] LABS: Glucose - Point of Care 102 mg/dl (70-99)
[2023-10-17] MEDS: ZITHROMAX INFUSION 250 IV (21:18)
[2023-10-17] MEDS: CARDIZEM 120 MG PO (21:43)
[2023-10-17 23:18] VITALS: BP 137/59
[2023-10-17 23:22] LABS: Glucose - Point of Care 120 mg/dl (70-99)
[2023-10-18] MEDS: FLAGYL 500 MG 100 IV ×3 (03:44→19:48)
[2023-10-18 03:56] VITALS: BP 151/65
[2023-10-18 05:42] LABS: Glucose - Point of Care 160 mg/dl (70-99)
[2023-10-18] MEDS: NOVOLOG FLEXPEN-LOW RESISTANCE 1 UNITS SC (05:46)
[2023-10-18 07:30] VITALS: BP 155/77
[2023-10-18 08:25] LABS: Hematocrit 35.3 % (37.0-47.0); Hemoglobin 11.2 g/dL (12.0-16.0); Mean Corp Hgb Conc. 31.7 g/dL (33.0-37.0); Mean Corpuscular Hgb 27.9 pg (27.0-31.0); Mean Platelet Volume 10.4 fL (7.4-10.4); Platelet Count 415 10^3/uL (130-400); Red Blood Cell Count 4.01 10^6/uL (4.20-5.40); Red Cell Dist. Width 13.5 % (11.5-14.5); White Blood Cell Count 8.7 10^3/uL (4.8-10.8)
[2023-10-18] MEDS: NORVASC 10 MG PO (08:46)
[2023-10-18] MEDS: DESENEX/MITRAZOL/ZEASORB 1 APPLIC TOPICAL ×2 (08:47→19:50)
[2023-10-18 08:49] LABS: Blood Urea Nitrogen 9 mg/dl (7-17); Calcium 10.3 mg/dl (8.4-10.2); Carbon Dioxide 17 mmol/L (22-30); Chloride 114 mmol/L (98-107); Estimated Creatinine Clearance 48 ml/min; Glucose 130 mg/dl (70-99); Magnesium 1.6 mg/dl (1.6-2.3); Potassium 3.7 mmol/L (3.5-5.1); Sodium 140 mmol/L (135-145); eGFR > 60.00
[2023-10-18 09:26] VITALS: BMI 24.9
[2023-10-18] MEDS: NSS 1000 IV ×2 (10:40→21:44)
--- NOTE | 2023-10-18 11:27 | W.PN.GI.CBS2 ---
Addendum entered and electronically signed by Moises Ovalles MD 10/18/23 18:14:
I saw and examined the patient.
The PA's note was reviewed and I agree with the note.
Comment:
Plan for repeat VSE to determine if PEG is warranted for aspiration risk. If to proceed, plan for 10/21 after plavix washout.
Addendum entered and electronically signed by ANTONY Moser 10/18/23 14:29:
I spoke with speech therapy and daughter. Daughter related patient mental status is improving since VSE 10/14. Speech concerned for aspiration risk. Speech to re eval later today at 4 pm when daughter is in to visit prior to placing DHT. Speech
to reassess if appropriate for repeat VSE at short interval vs bedside eval.
Original Note:
Today's Communication / Plan
-
I left message with speech to review recent VSE with concern for aspiration
will need to touch base with family
if would like to proceed with peg will be Wednesday after wash out
may need to consider temporary DHT til wednesday
cont plavix hold for now
will follow
Assessment / Plan
-
Patient is a 83-year-old female with history of HTN, DM, dementia, and CVA with residual left-sided weakness who p/w fatigue and cough. She had acute hypoxic respiratory sufficiency which subsequently resolved. She had CT chest which ruled out PE
and did not show any consolidation or findings of pneumonia. She had speech evaluation which showed silent aspiration on thin liquids. Given this finding consult for PEG placement was placed.
Impression / Rec:
-failed VSE
-concern for sepsis aspiration/CAP
-reactive airway disease
-dementia
-hx CVA
PLAN:
I left message with speech to review recent VSE with concern for aspiration
will need to touch base with family
if would like to proceed with peg will be Wednesday after wash out
may need to consider temporary DHT til wednesday
cont plavix hold for now
will follow
Subjective
Subjective
Date of Service: October 18, 2023
NPO, no stools
Objective
Data Reviewed
Laboratory Data:
Laboratory Results
10/18/23 07:43
10/18/23 07:43
Laboratory Results
Magnesium 1.6 mg/dl (1.6-2.3) 10/18/23 07:43
Total Bilirubin 0.4 mg/dl (0.2-1.3) 10/15/23 07:25
AST 26 U/L (14-36) 10/15/23 07:25
ALT 17 U/L (0-35) 10/15/23 07:25
Alkaline Phosphatase 113 U/L (38-126) 10/15/23 07:25
Vital Signs and I&O:
Vital Signs
Temp Pulse Resp BP Pulse Ox
97.8 F 67 18 155/77 95
10/18/23 07:30 10/18/23 07:30 10/18/23 07:30 10/18/23 07:30 10/18/23 08:54
I&O
10/17/23 10/18/23 10/19/23
06:59 06:59 06:59
Intake Total 1250 / 1250
Output Total 750 / 750
Balance 500 / 500
Physical Exam
Physical Exam
HEENT: Anicteric and Moist mucous membranes
Cardiology: Normal Sinus Rhythm
Pulmonary: Clear
GI: Soft, Non Distended and Non Tender
Extremities: No Edema
Neuro: Other (forgetful)
[2023-10-18 12:26] LABS: Glucose - Point of Care 119 mg/dl (70-99)
[2023-10-18] MEDS: NOVOLOG FLEXPEN-LOW RESISTANCE SC ×2 (12:26→18:27)
--- NOTE | 2023-10-18 14:37 | CM ---
Patient seen at bedside with physician and caregiver. Discharge plans to be determined.
Plan; TBD
--- NOTE | 2023-10-18 14:46 | W.PN.HOSP.TC ---
Today's Communication/Plan
-
await GI input
Assessment / Plan
Assessment / Plan
pt is an 83 year old female
Sepsis POA secondary to CAP vs aspiration pneumonia with Acute metabolic encephalopathy --resolved--pt failed speech eval--cont rocephin/flagyl/zithromax--Weaned off O2 support back to RA , cont to monitor pulse OX on RA (daughter states pt drops to
88% on RA at home) -- flu and covid negative, Procal 0.17--Dr. Morales discussed with daughter at great length, provided the options of palliative/hospice vs PEG--Daughter is leaning toward PEG placement--pt indicates to me that she would not want
that--await GI input
Reactive airway disease--patient uses albuterol at home; no hx smoking--Cont standing duonebs x 24 hours then PRN, no wheezing on exam
Essential Hypertension--Cont RESPIRATORY ASSISTANT amlodipine with holding parameter
Dementia--patient requires 24/7 care, non-ambulatory--She is awake, conversant but need to take time to talk with her
Hx CVA with residual left-sided weakness--resume RESPIRATORY ASSISTANT Plavix
Hypercalcemia, resolved after IVF
Hypokalemia--replete
DVT PPx Lovenox subQ
DNR - Dr. Morales discussed with daughter on admission
Anticipated Discharge: > 48 hours
Subjective/Interval History
-
Date of Service: October 18, 2023
pt denies pain--understands not swallowing well--indicates to me that she would not want feeding tube
Objective Data
-
Labs:
Laboratory Results
10/18/23
07:43
WBC 8.7
Hgb 11.2 L
Hct 35.3 L
Plt Count 415 H D
Sodium 140
Potassium 3.7
Chloride 114 H
Carbon Dioxide 17 L
BUN 9
Creatinine 0.5 L
Glucose 130 H
Calcium 10.3 H
Vital Signs:
max temp for 24 hours
10/17/23
16:35
Temp 98.5 F
Vital Signs
Temp Pulse Resp BP Pulse Ox
97.8 F 67 18 155/77 95
10/18/23 07:30 10/18/23 07:30 10/18/23 07:30 10/18/23 07:30 10/18/23 08:54
I&O
10/17/23 10/18/23 10/19/23
06:59 06:59 06:59
Intake Total 1250 / 1250
Output Total 750 / 750
Balance 500 / 500
Review of Systems
-
All other systems: Reviewed and negative
Physical Exam
-
General: Well Developed, Well Nourished and No Apparent Distress
HEENT: Normocephalic and Atraumatic
Respiratory: Clear to Auscultation; Negative Wheezes or Rhonchi
Cardiac: Regular Rhythm and S1/S2; Negative Murmur
GI: Soft, Nontender, Nondistended and Normal Bowel Sounds
Musculoskeletal: No Clubbing, No Cyanosis and No Edema
Neuro: Awake, Alert and Other
[2023-10-18 15:25] VITALS: BP 143/73
[2023-10-18] MEDS: ROCEPHIN 1000 MG IV (17:57)
[2023-10-18] MEDS: STERILE WATER FOR INJECTION 10 ML IV (17:57)
[2023-10-18] MEDS: LOVENOX 40 MG SC (17:58)
[2023-10-18 18:25] LABS: Glucose - Point of Care 104 mg/dl (70-99)
[2023-10-18] MEDS: CARDIZEM 120 MG PO (19:56)
[2023-10-18] MEDS: ZITHROMAX INFUSION 250 IV (21:39)
[2023-10-18 23:20] VITALS: BP 125/61
[2023-10-19 00:17] LABS: Glucose - Point of Care 121 mg/dl (70-99)
[2023-10-19] MEDS: NOVOLOG FLEXPEN-LOW RESISTANCE SC ×4 (00:30→12:57)
[2023-10-19] MEDS: FLAGYL 500 MG 100 IV ×3 (03:25→21:02)
[2023-10-19 06:08] LABS: Glucose - Point of Care 147 mg/dl (70-99)
[2023-10-19 07:38] LABS: Hematocrit 31.9 % (37.0-47.0); Hemoglobin 10.2 g/dL (12.0-16.0); Mean Corpuscular Hgb 27.7 pg (27.0-31.0); Mean Corpuscular Volume 86.7 fL (81.0-99.0); Platelet Count 415 10^3/uL (130-400); Red Blood Cell Count 3.68 10^6/uL (4.20-5.40); Red Cell Dist. Width 13.9 % (11.5-14.5); White Blood Cell Count 7.1 10^3/uL (4.8-10.8)
[2023-10-19 07:44] LABS: INR 1.28; PT 15.8 Sec (11.4-14.6)
[2023-10-19 07:55] VITALS: BP 121/43
[2023-10-19 07:58] LABS: ALT (SGPT) 11 U/L (0-35); AST (SGOT) 16 U/L (14-36); Albumin 2.5 g/dl (3.5-5.0); Alkaline Phosphatase 97 U/L (38-126); Blood Urea Nitrogen 7 mg/dl (7-17); Calcium 10.2 mg/dl (8.4-10.2); Carbon Dioxide 15 mmol/L (22-30); Chloride 118 mmol/L (98-107); Estimated Creatinine Clearance 48 ml/min; Glucose 122 mg/dl (70-99); Magnesium 1.6 mg/dl (1.6-2.3); Potassium 3.3 mmol/L (3.5-5.1); Sodium 142 mmol/L (135-145); Total Bilirubin 0.2 mg/dl (0.2-1.3); eGFR > 60.00
[2023-10-19] MEDS: NORVASC 10 MG PO (08:15)
[2023-10-19] MEDS: DESENEX/MITRAZOL/ZEASORB 1 APPLIC TOPICAL ×2 (08:20→21:03)
--- NOTE | 2023-10-19 09:58 | W.PN.GI.CBS2 ---
Addendum entered and electronically signed by Chastity Lopez DO 10/19/23 17:39:
Patient seen and examined independently of ANTONY. I agree with the note with my additions below
83-year-old female with dementia, CVA left-sided weakness with fatigue and cough. GI was consulted for PEG placement however upon retrial with speech therapy patient is now able to trial level 4 pur�ed diet with moderate thick liquids, supervision.
Patient does not want PEG anyway.
GI will sign off. Please call us back if we are needed.
Addendum entered and electronically signed by ANTONY Moser 10/19/23 11:47:
reviewed with speech ok for trial of IDDS level 4 pureed, mod thick liquids, full feed assist, supervision, small sips and bits, slow rate, meds crushed in Pureed
Original Note:
Today's Communication / Plan
-
speech therapy met again with pt and daughter last PM -- repeat VSE today await results daughter was present for evaluation and hopeful to start oral diet
cont plavix hold for now -- cont to hold til taking oral diet without difficulty
remains on abx
all questions answered
Assessment / Plan
-
Patient is a 83-year-old female with history of HTN, DM, dementia, and CVA with residual left-sided weakness who p/w fatigue and cough. She had acute hypoxic respiratory sufficiency which subsequently resolved. She had CT chest which ruled out PE
and did not show any consolidation or findings of pneumonia. She had speech evaluation which showed silent aspiration on thin liquids. Given this finding consult for PEG placement was placed.
Impression / Rec:
-failed VSE 10/14
-concern for sepsis aspiration/CAP
-reactive airway disease
-dementia
-hx CVA
PLAN:
speech therapy met again with pt and daughter last PM -- repeat VSE today await results daughter was present for evaluation and hopeful to start oral diet
cont plavix hold for now -- cont to hold til taking oral diet without difficulty
remains on abx
all questions answered
Subjective
Subjective
Date of Service: October 19, 2023
NPO no stools just returned from VSE, per family pt asking to go home no fever noted
Objective
Data Reviewed
Laboratory Data:
Laboratory Results
10/19/23 07:17
10/19/23 07:17
Laboratory Results
PT 15.8 Sec (11.4-14.6) H 10/19/23 07:17
INR 1.28 10/19/23 07:17
Magnesium 1.6 mg/dl (1.6-2.3) 10/19/23 07:17
Total Bilirubin 0.2 mg/dl (0.2-1.3) 10/19/23 07:17
AST 16 U/L (14-36) 10/19/23 07:17
ALT 11 U/L (0-35) 10/19/23 07:17
Alkaline Phosphatase 97 U/L (38-126) 10/19/23 07:17
Vital Signs and I&O:
Vital Signs
Temp Pulse Resp BP Pulse Ox
97.7 F 66 16 121/71 97
10/19/23 07:55 10/19/23 08:15 10/19/23 07:55 10/19/23 08:15 10/19/23 07:55
I&O
10/18/23 10/19/23 10/20/23
06:59 06:59 06:59
Intake Total 1250 / 1250 1150 / 1150
Output Total 750 / 750 1350 / 1350
Balance 500 / 500 -200 / -200
Physical Exam
Physical Exam
HEENT: Anicteric and Moist mucous membranes
Cardiology: Normal Sinus Rhythm
Pulmonary: Clear
GI: Soft, Non Distended and Non Tender
Extremities: No Edema
Neuro: Other (some verbal with slurred speech)
[2023-10-19 12:53] LABS: Glucose - Point of Care 147 mg/dl (70-99)
--- NOTE | 2023-10-19 13:58 | PTOTSP ---
Video Swallow Examination
Patient presents with signs concerning for moderate oral/ pharyngeal dysphagia. She had silent aspiration of thin liquids via tsp (no cough) and deep laryngeal penetration with mildly thick liquids via tsp with risk for aspiration over time as she
could not follow cue to cough/clear. Upper penetration was noted x1 with moderately thick liquids. No aspiration noted with puree.
Patient is at risk for chronic progressive dysphagia given her known dementia. Can consider diet initiation with modifications and compensations with family understanding chronic risk for dysphagia. Daughter present for video swallow study and was
able to review results/recommendations.
Recommend:
1. IDDSI Level 4 (Puree), IDDSI Level 3 (Moderately Thick Liquids)
2. Medications - crushed in puree if medically cleared
3. 1:1 supervision and assistance
4. Strategies: small single sips/bites, slow rate, ensure patient clears oral cavity/swallows before next sip/bite
5. Oral care 3-5x daily to reduce risk for aspiration of oral bacteria
6. Continued dysphagia tx at the acute care level for further family/caregiver education about diet recommendations, compensations, and dysphagia.
[2023-10-19] MEDS: NSS 1000 IV (14:10)
--- NOTE | 2023-10-19 14:47 | CM ---
Addendum entered by Ami Hutchison 10/19/23 16:40:
patient had been referred to [facility] and updated clinicals sent.
Addendum entered by Ami Hutchison 10/19/23 16:31:
VM left for patient daughter x2.
Original Note:
Patient seen at bedside with physician and caregiver. Patient with diet as of today. CM provided IMM and caregiver to provide information to daughter. CM will call to patient daughter to update. CM will continue to follow for discharge planning
needs.
Plan; home with caregivers and VN pending family choice.
--- NOTE | 2023-10-19 15:21 | W.PN.HOSP.TC ---
Today's Communication/Plan
-
if tolerates current diet can d/c in AM
Assessment / Plan
Assessment / Plan
pt is an 83 year old female
Sepsis POA secondary to CAP vs aspiration pneumonia with Acute metabolic encephalopathy --resolved--pt failed speech eval--cont rocephin/flagyl/zithromax--Weaned off O2 support back to RA , cont to monitor pulse OX on RA (daughter states pt drops to
88% on RA at home) -- flu and covid negative, Procal 0.17--Dr. Morales discussed with daughter at great length, provided the options of palliative/hospice vs PEG--Daughter is leaning toward PEG placement--pt indicates to me that she would not want
that--apprec GI input--passed VSE, has diet, no PEG
Reactive airway disease--patient uses albuterol at home; no hx smoking--Cont standing duonebs x 24 hours then PRN, no wheezing on exam
Essential Hypertension--Cont PATIENT ACCOUNTS CLERK amlodipine with holding parameter
Dementia--patient requires 24/7 care, non-ambulatory--She is awake, conversant but need to take time to talk with her
Hx CVA with residual left-sided weakness--resume PATIENT ACCOUNTS CLERK Plavix
Hypercalcemia, resolved after IVF
Hypokalemia--replete
DVT PPx Lovenox subQ
DNR - Dr. Morales discussed with daughter on admission
Anticipated Discharge: Within 24 hours
Subjective/Interval History
-
Date of Service: October 19, 2023
pt passed VSE
has diet
Objective Data
-
Labs:
Laboratory Results
10/19/23
07:17
WBC 7.1
Hgb 10.2 L
Hct 31.9 L
Plt Count 415 H
PT 15.8 H
INR 1.28
Sodium 142
Potassium 3.3 L
Chloride 118 H
Carbon Dioxide 15 L
BUN 7
Creatinine 0.6
Glucose 122 H
Calcium 10.2
Total Bilirubin 0.2
AST 16
ALT 11
Alkaline Phosphatase 97
Vital Signs:
max temp for 24 hours
10/18/23
15:25
Temp 98.1 F
Vital Signs
Temp Pulse Resp BP Pulse Ox
97.7 F 66 16 121/71 97
10/19/23 07:55 10/19/23 08:15 10/19/23 07:55 10/19/23 08:15 10/19/23 07:55
I&O
10/18/23 10/19/23 10/20/23
06:59 06:59 06:59
Intake Total 1250 / 1250 1150 / 1150
Output Total 750 / 750 1350 / 1350
Balance 500 / 500 -200 / -200
Review of Systems
-
All other systems: Reviewed and negative
Physical Exam
-
General: Well Developed, Well Nourished and No Apparent Distress
HEENT: Normocephalic and Atraumatic
Respiratory: Clear to Auscultation; Negative Wheezes or Rhonchi
Cardiac: Regular Rhythm and S1/S2; Negative Murmur
GI: Soft, Nontender, Nondistended and Normal Bowel Sounds
Musculoskeletal: No Clubbing, No Cyanosis and No Edema
Neuro: Awake and Alert
[2023-10-19 15:30] VITALS: BP 158/72
[2023-10-19] MEDS: STERILE WATER FOR INJECTION IV (16:54)
[2023-10-19 17:44] LABS: Glucose - Point of Care 168 mg/dl (70-99)
[2023-10-19] MEDS: NOVOLOG FLEXPEN-LOW RESISTANCE 1 UNITS SC (18:04)
[2023-10-19] MEDS: LOVENOX 40 MG SC (18:05)
[2023-10-19] MEDS: CARDIZEM 120 MG PO (21:06)
[2023-10-19 21:43] LABS: Glucose - Point of Care 182 mg/dl (70-99)
[2023-10-19 23:25] VITALS: BP 132/66
[2023-10-20] MEDS: FLAGYL 500 MG 100 IV (04:27)
[2023-10-20 06:00] VITALS: BMI 25.7
[2023-10-20 07:28] LABS: Glucose - Point of Care 182 mg/dl (70-99)
[2023-10-20 07:30] VITALS: BP 159/71
[2023-10-20 08:23] LABS: Hematocrit 33.5 % (37.0-47.0); Hemoglobin 10.8 g/dL (12.0-16.0); Mean Corp Hgb Conc. 32.2 g/dL (33.0-37.0); Mean Corpuscular Hgb 27.6 pg (27.0-31.0); Mean Corpuscular Volume 85.7 fL (81.0-99.0); Mean Platelet Volume 10.4 fL (7.4-10.4); Platelet Count 447 10^3/uL (130-400); Red Blood Cell Count 3.91 10^6/uL (4.20-5.40); Red Cell Dist. Width 14.1 % (11.5-14.5); White Blood Cell Count 8.6 10^3/uL (4.8-10.8)
[2023-10-20 08:40] LABS: Blood Urea Nitrogen 7 mg/dl (7-17); Carbon Dioxide 21 mmol/L (22-30); Chloride 112 mmol/L (98-107); Estimated Creatinine Clearance 54 ml/min; Glucose 147 mg/dl (70-99); Magnesium 1.6 mg/dl (1.6-2.3); Sodium 145 mmol/L (135-145); eGFR > 60.00
[2023-10-20] MEDS: NOVOLOG FLEXPEN-LOW RESISTANCE 1 UNITS SC ×2 (10:00→17:30)
[2023-10-20] MEDS: DESENEX/MITRAZOL/ZEASORB 1 APPLIC TOPICAL ×2 (10:00→21:41)
[2023-10-20] MEDS: NORVASC 10 MG PO (10:01)
[2023-10-20] MEDS: SENOKOT-S 1 TABLET PO ×2 (10:01→21:42)
--- NOTE | 2023-10-20 10:13 | W.PN.HOSP.TC ---
Addendum entered and electronically signed by Tiffany Morales MD 10/20/23 13:11:
Patient is in need of a semi-electric hospital bed wiht foam mattress due to the need to elevate head of bed above 30 degrees to prevent aspiration
and to facilitate frequent repositioning to prevent bed ulcers and pressure points.
Original Note:
Today's Communication/Plan
-
cont puree diet wit Moderately Thick Liquids
replete lytes
Assessment / Plan
Assessment / Plan
pt is an 83 year old female
Sepsis POA secondary to CAP vs aspiration pneumonia with Acute metabolic encephalopathy --resolved
rocephin/flagyl/zithromax x 5 days--Weaned off O2 support back to RA, cont to monitor pulse OX on RA (daughter states pt drops to 88% on RA at home) -- flu and covid negative, Procal 0.17--Dr. Morales discussed with daughter at great length, provided
the options of palliative/hospice vs PEG--Daughter was leaning toward PEG placement--pt then passed VSE and was started puree with Moderately Thick Liquids, cont such diet. No plan for PEG anymore.
Reactive airway disease--patient uses albuterol at home; no hx smoking--Cont standing duonebs x 24 hours then PRN, no wheezing on exam
Essential Hypertension--Cont DIE CUTTER amlodipine with holding parameter
Dementia--patient requires 24/7 care, non-ambulatory--She is awake, conversant but need to take time to talk with her
Hx CVA with residual left-sided weakness--resume DIE CUTTER Plavix
Hypercalcemia, monitor
Hypokalemia--replete
Hypomagnesemia --replete
DVT PPx Lovenox subQ
DNR - Dr. Morales discussed with daughter on admission
D/W daughter on the phone
Anticipated Discharge: Within 24 hours
Subjective/Interval History
-
Date of Service: October 20, 2023
Objective Data
-
Labs:
Laboratory Results
10/20/23
07:33
WBC 8.6
Hgb 10.8 L
Hct 33.5 L
Plt Count 447 H
Sodium 145
Potassium 3.0 L
Chloride 112 H
Carbon Dioxide 21 L
BUN 7
Creatinine 0.5 L
Glucose 147 H
Calcium 11.0 H
Vital Signs:
Vital Signs
Temp Pulse Resp BP Pulse Ox
36.4 C 63 18 159/71 93
10/20/23 07:30 10/20/23 07:30 10/20/23 07:30 10/20/23 10:01 10/20/23 07:30
I&O
10/19/23 10/20/23 10/21/23
06:59 06:59 06:59
Intake Total 1150 / 1150 480 / 480
Output Total 1350 / 1350 1300 / 1300
Balance -200 / -200 -820 / -820
Review of Systems
-
Unable to obtain full review of systems at this time due to: Dementia
Physical Exam
-
General: Well Developed, Well Nourished, No Apparent Distress and Comfortable
HEENT: Normocephalic and Atraumatic
Respiratory: Clear to Auscultation and Non Labored Respirations; Negative Wheezes, Rhonchi or Accessory Resp Muscle Use
Cardiac: Regular Rhythm and S1/S2; Negative Murmur
GI: Soft, Nontender, Nondistended and Normal Bowel Sounds
Musculoskeletal: No Clubbing, No Cyanosis and No Edema
Neuro: Awake
Psych: Calm and Apparent Dementia
Data Reviewed
-
Diagnostic Radiology: Report Reviewed by me
CT Scan: Report Reviewed by me
Labs: Labs Reviewed by me
[2023-10-20] MEDS: KCL 40 MEQ PO (10:54)
[2023-10-20] MEDS: MAGNESIUM SULFATE 50 IV (10:55)
[2023-10-20] MEDS: FLUSH (NSS) 2 FLUSH IV (11:00)
[2023-10-20] MEDS: KCL 270 MEQ IV (11:00)
--- NOTE | 2023-10-20 13:36 | CM ---
Addendum entered by Ami Hutchison 10/20/23 16:32:
[facility] to deliver bed to home and has contact information for patient daughter. Patient daughter aware that she will need to discuss derejewick with PCP.
Original Note:
Patient seen at bedside. CM met with patient daughter and aide and reviewed extensively family questions. [facility] to follow for discharge with PT/OT/Speech and SWer as well as nursing. Patient daughter requested hospital bed and purewick, CM sent
referral to [facility] following discussion of options for DME. Patient physician updated. Patient family asked for vocational placement specialist and nursing requested consult. Patient will need ambulance for transportation home. CM reviewed all questions and
IMM signed 10/19/23 by patient daughter and signed copy placed on chart. CM will continue to follow for discharge planning needs.
Plan; home with [facility] and DME; pending approval
[2023-10-20 13:51] LABS: Glucose - Point of Care 213 mg/dl (70-99)
[2023-10-20] MEDS: NOVOLOG FLEXPEN-LOW RESISTANCE 2 UNITS SC (14:14)
[2023-10-20 15:35] VITALS: BP 163/77
[2023-10-20 16:53] LABS: Glucose - Point of Care 176 mg/dl (70-99)
[2023-10-20] MEDS: LOVENOX 40 MG SC (17:34)
[2023-10-20 21:30] LABS: Glucose - Point of Care 204 mg/dl (70-99)
[2023-10-20] MEDS: CARDIZEM 120 MG PO (21:42)
[2023-10-20 23:19] VITALS: BP 123/58
[2023-10-21 05:31] VITALS: BMI 25.1
[2023-10-21 07:00] VITALS: BP 153/66
[2023-10-21 07:44] LABS: Hematocrit 37.1 % (37.0-47.0); Hemoglobin 11.8 g/dL (12.0-16.0); Mean Corp Hgb Conc. 31.8 g/dL (33.0-37.0); Mean Corpuscular Hgb 27.4 pg (27.0-31.0); Mean Corpuscular Volume 86.1 fL (81.0-99.0); Mean Platelet Volume 10.3 fL (7.4-10.4); Platelet Count 450 10^3/uL (130-400); Red Blood Cell Count 4.31 10^6/uL (4.20-5.40); Red Cell Dist. Width 14.4 % (11.5-14.5); White Blood Cell Count 7.4 10^3/uL (4.8-10.8)
[2023-10-21 08:14] LABS: Blood Urea Nitrogen 9 mg/dl (7-17); Calcium 10.8 mg/dl (8.4-10.2); Carbon Dioxide 27 mmol/L (22-30); Chloride 113 mmol/L (98-107); Estimated Creatinine Clearance 53 ml/min; Glucose 170 mg/dl (70-99); Magnesium 2.1 mg/dl (1.6-2.3); Potassium 3.8 mmol/L (3.5-5.1); Sodium 145 mmol/L (135-145); eGFR > 60.00
[2023-10-21 08:27] LABS: Glucose - Point of Care 172 mg/dl (70-99)
[2023-10-21] MEDS: NOVOLOG FLEXPEN-LOW RESISTANCE 1 UNITS SC (08:43)
[2023-10-21] MEDS: SENOKOT-S 1 TABLET PO (08:46)
[2023-10-21] MEDS: NORVASC 10 MG PO (08:46)
[2023-10-21] MEDS: DESENEX/MITRAZOL/ZEASORB 1 APPLIC TOPICAL (08:49)
--- NOTE | 2023-10-21 11:34 | W.PN.HOSP.TC ---
Today's Communication/Plan
-
d/c
Assessment / Plan
Assessment / Plan
pt is an 83 year old female
Sepsis POA secondary to CAP vs aspiration pneumonia with Acute metabolic encephalopathy --resolved--finished rocephin/flagyl/zithromax x 5 days--Weaned off O2 support back to RA, cont to monitor pulse OX on RA (daughter states pt drops to 88% on RA
at home) -- flu and covid negative, Procal 0.17--Dr. Morales discussed with daughter at great length, provided the options of palliative/hospice vs PEG--Daughter was leaning toward PEG placement--pt then passed VSE and was started puree with Moderately
Thick Liquids, cont such diet. No plan for PEG anymore.
Reactive airway disease--patient uses albuterol at home; no hx smoking--Cont standing duonebs x 24 hours then PRN, no wheezing on exam
Essential Hypertension--Cont WINK CUTTER OPERATOR amlodipine with holding parameter
Dementia--patient requires 24/7 care, non-ambulatory--She is awake, conversant but need to take time to talk with her
Hx CVA with residual left-sided weakness--resume WINK CUTTER OPERATOR Plavix
Hypercalcemia, monitor
Hypokalemia--replete
Hypomagnesemia --replete
DVT PPx Lovenox subQ
DNR - Dr. Morales discussed with daughter on admission
son at bedside
Anticipated Discharge: Today
Subjective/Interval History
-
Date of Service: October 21, 2023
tolerating diet--OK for d/c
Objective Data
-
Labs:
Laboratory Results
10/21/23
07:17
WBC 7.4
Hgb 11.8 L
Hct 37.1
Plt Count 450 H
Sodium 145
Potassium 3.8 D
Chloride 113 H
Carbon Dioxide 27
BUN 9
Creatinine 0.4 L
Glucose 170 H
Calcium 10.8 H
Vital Signs:
max temp for 24 hours
10/20/23
23:19
Temp 97.7 F
Vital Signs
Temp Pulse Resp BP Pulse Ox
97.9 F 70 18 153/66 97
10/21/23 07:00 10/21/23 07:00 10/21/23 07:00 10/21/23 07:00 10/21/23 08:54
I&O
10/20/23 10/21/23 10/22/23
06:59 06:59 06:59
Intake Total 480 / 480 120 / 120
Output Total 1300 / 1300 950 / 950
Balance -820 / -820 -830 / -830
Review of Systems
-
All other systems: Reviewed and negative
Physical Exam
-
General: Well Developed, Well Nourished and No Apparent Distress
HEENT: Normocephalic and Atraumatic
Respiratory: Clear to Auscultation; Negative Wheezes or Rhonchi
Cardiac: Regular Rhythm and S1/S2; Negative Murmur
GI: Soft, Nontender, Nondistended and Normal Bowel Sounds
Musculoskeletal: No Clubbing, No Cyanosis and No Edema
Skin: Warm
Neuro: Awake
Psych: Calm
[2023-10-21 12:20] LABS: Glucose - Point of Care 286 mg/dl (70-99)
[2023-10-21] MEDS: NOVOLOG FLEXPEN-LOW RESISTANCE 3 UNITS SC (12:42)
--- NOTE | 2023-10-21 14:15 | W.DCSUMMARY ---
Discharge Summary
Discharge Data
Date of Admission: 10/13/23
Date of Discharge: 10/21/23
-
Pending Results: No
Hospital Course
Primary care physician : Fabio Temple
Principal Discharge diagnosis : Sepsis secondary to community-acquired pneumonia/aspiration pneumonia/acute metabolic encephalopathy as a result
Chronic Discharge diagnosis : Reactive airway disease, essential hypertension, dementia, history of stroke with residual left-sided weakness, hypercalcemia/hypokalemia/hypomagnesemia
Hospital Course : Patient was an 83-year-old female with a history of dementia and previous stroke with residual left-sided weakness who presented with fatigue and cough. Patient was lethargic on the initial evaluation in the emergency department.
As per the patient's daughter, the patient was in her usual state of health on Wednesday but on Wednesday appeared to be rundown from a 'cold'. She had a mild cough and the daughter heard a 'gurgling' in her chest. Her primer charger mention the possibility
of pneumonia which resulted in coming into the hospital. At baseline she is nonambulatory and fully dependent on care. Patient has caregivers during the day and her daughter cares for her at night. Patient was admitted.
Problem #1: Sepsis secondary to community-acquired pneumonia/aspiration pneumonia/acute metabolic encephalopathy as a result. Patient was started on Rocephin, Flagyl, and Zithromax and completed 5 days worth. She was started on oxygen but weaned
off. Influenza and COVID were negative. Procalcitonin was negative as well. Patient had been failing her speech evaluation most of her hospitalization and Dr. Morales did discuss with the patient's daughter at length regarding palliative care,
hospice, feeding tube. Daughter was initially leaning towards feeding tube placement. Speech then reevaluated the patient yet again and the patient did pass a video swallow. She was started on pur�ed with moderately thick liquids and was
tolerating that well. There are no further plans for any PEG tube. However, it is recommended that the patient and her family follow-up with palliative care to discuss a plan for if and when the patient swallowing deteriorates to the point that
she is unable to have anything by mouth moving forward.
Problem #2: All other medical issues. These include Reactive airway disease, essential hypertension, dementia, history of stroke with residual left-sided weakness, hypercalcemia/hypokalemia/hypomagnesemia. These medical issues were stable during
her hospitalization. Medications were continued as able. Repletion of electrolytes and ions was performed.
Patient is stable for discharge home with family at this time. If there are any questions regarding this dictation or her hospital stay, please not hesitate to call. Our office number is [phone].
Time for discharge 35 minutes.
Discharge Plan
-
Patient Disposition: Home with Home Care
Discharge Diagnosis/Procedures: Sepsis secondary to community-acquired pneumonia/aspiration pneumonia with acute metabolic encephalopathy, reactive airway disease, essential hypertension, dementia, history of CVA with residual left-sided weakness,
hypercalcemia, hypokalemia/hypomagnesemia
Condition: Fair
Additional Diets: Pur�ed with moderately thick liquids
Activity: As tolerated
Driving Restrictions: No driving
Bathing Restrictions: None
Other Services: VN
Activity Restrictions/Additional Instructions:
Will need to follow-up with palliative care at discharge. Need plan if speech/swallow deteriorates.
Referrals:
Fabio Temple DO [Family Provider] - in less than 1 week
Prescriptions:
New
sennosides-docusate sodium [Stool Softener-Stimulant Laxat] 8.6-50 mg Tablet
1 tab PO BID Qty: 0 0RF
Continued
metformin 500 MG tablet
500 mg PO DAILY
amlodipine 10 MG tablet
10 mg PO DAILY
diltiazem HCl 120 mg Tablet
120 mg PO HS
atorvastatin 40 MG tablet
40 mg PO DAILY
acetaminophen 325 MG tablet
650 mg PO TID
Rx Instructions:
dextromethorphan-guaifenesin 10-100 mg/5 mL Liquid
10 ml PO Q4H PRN (Reason: cough )
clopidogrel 75 MG tablet
75 mg PO DAILY Qty: 30 0RF
Discontinued
metformin 500 mg Tablet
500 mg PO QPMPRN PRN (Reason: BLOOD SUGAR)
Discharge Orders:
Discharge Patient (As Directed); Ordered 10/21/23
Ordered By: Unique Breaux
[2023-10-21] MEDS: FLUZONE HIGH-DOSE QUAD 2023-24 0.699999999999999956 ML IM (16:11)
[2023-10-21] MEDS: LOVENOX 40 MG SC (18:11)
[2023-10-21 18:12] LABS: Glucose - Point of Care 212 mg/dl (70-99)
[2023-10-21] MEDS: NOVOLOG FLEXPEN-LOW RESISTANCE 2 UNITS SC (18:12)
[2023-10-21 18:29] VITALS: BP 153/73
--- NOTE | 2023-10-22 08:45 | CM ---
(late entry for 10/21/23)
CM following re: d/c planning
Chart reviewed
CM spoke with the patient's daughter Jaqueline who confirmed that requested DME had arrived and that transport was being coordinated
Once sweet pickled fruit maker time defined cm to share
CM completed [facility]OMN & in house transport form and per Simeon transport confirmed at 6pm
CM also called to inform Meghan at [facility] that the patient would be discharging home today
No additional d/c needs to note
IMM was previously provided by CM
PLAN; d/c home with [facility]
== END 2023-10-21 19:06 | disposition home health service (06) | DRG 871 ==
LOC: 4 EAST ACU 21:59
PROVIDERS: Internal Medicine; Nurse Practitioner Adult Health; ADMITTING PHYSICIAN Student in an Organized Health Care Education/Training Program; ATTENDING PHYSICIAN Internal Medicine; CONSULT PHYSICIAN Internal Medicine Cardiovascular Disease; CONSULT PHYSICIAN Internal Medicine Gastroenterology; EMERGENCY PHYSICIAN Emergency Medicine; FAMILY PHYSICIAN Internal Medicine
PROC: 3E0234Z Introduction of Serum, Toxoid and Vaccine into Muscle, Percutaneous Approach (ICD-10-PCS; 2023-10-21)
DX: A41.9 Sepsis, unspecified organism (principal); G92.8 Other toxic encephalopathy; J69.0 Pneumonitis due to inhalation of food and vomit; I69.354 Hemiplegia and hemiparesis following cerebral infarction affecting left non-dominant side; E87.20 Acidosis, unspecified; Z66 Do not resuscitate; E11.9 Type 2 diabetes mellitus without complications; F03.90 Unspecified dementia, unspecified severity, without behavioral disturbance, psychotic disturbance, mood disturbance, and anxiety; I10 Essential (primary) hypertension; E83.52 Hypercalcemia; K21.9 Gastro-esophageal reflux disease without esophagitis; J45.909 Unspecified asthma, uncomplicated; E87.6 Hypokalemia; E83.42 Hypomagnesemia; R65.20 Severe sepsis without septic shock; Z23 Encounter for immunization; Z79.02 Long term (current) use of antithrombotics/antiplatelets; Z79.84 Long term (current) use of oral hypoglycemic drugs; Z79.899 Other long term (current) drug therapy
CPT/HCPCS: 71045; 71275; 74230; 80048; 80053; 81003; 81015; 82248; 82962; 83036; 83605; 83735; 84145; 85025; 85027; 85610; 87040; 87070; 87502; 87811; 92526; 92610; 92611; 93005; 94640; 96361; 96365; 96375; 99285; Q9967